=== PATIENT | female | born 1985 | race Two or more races ===

== ENCOUNTER → 2023-09-29 | Emergency (ER) | payer OTHER ==
[~2023-09-29] VITALS: Ht 157.5 cm; Wt 90.5 kg
[2023-09-29 00:20] VITALS: BP 148/90; PULSE 89; RESP 16; O2SAT 97
== END | disposition left against medical advice (07) ==
LOC: ER 00:09
DX: R05.9 Cough, unspecified (principal); Z53.21 Procedure and treatment not carried out due to patient leaving prior to being seen by health care provider